=== PATIENT | female | born 1955 | race Caucasian/White ===

== ENCOUNTER → 2016-10-03 | Outpatient (CLI) | payer BC ==
--- NOTE | 2016-10-08 08:13 | MM ---
Reason for exam: screening (asymptomatic). Last mammogram was performed 1 year and 1 month ago. History: Patient is postmenopausal. Family history of premenopausal breast cancer in sister at age 48. Took hormonal contraceptives for 3 years beginning at age 18. Physical Findings: A clinical breast exam by your physician is recommended on an annual basis and results should be correlated with mammographic findings. MG Screening Mammo w CAD Bilateral CC and MLO view(s) were taken. Prior study comparison: August 31, 2015, bilateral MG screening mammo w CAD. August 18, 2014, bilateral MG screening mammo w CAD. August 02, 2013, bilateral digital screening mammo w/CAD. The breast tissue is heterogeneously dense. This may lower the sensitivity of mammography. No significant changes when compared with prior studies. ASSESSMENT: Negative, BI-RAD 1 RECOMMENDATION: Routine screening mammogram of both breasts in 1 year.
== END | disposition home or self-care (01) ==
LOC: RADMAMWWP 09:14
PROVIDERS: ATTEND Obstetrics & Gynecology
DX: Z12.31 Encounter for screening mammogram for malignant neoplasm of breast (principal)

== ENCOUNTER → 2017-06-21 | Outpatient (CLI) | payer BC ==
--- NOTE | 2017-06-21 08:02 | MR ---
EXAMINATION TYPE: MR brain wo/w con DATE OF EXAM: 06/21/2017 7:52 AM COMPARISON: Previous study dated 02/27/2016 HISTORY: Follow up from previous, Gadavist 10, Previous on PACS TECHNIQUE: Multiplanar, multiecho imaging of the brain was obtained with and without intravenous adm inistration of 10 mL intravenous Gadavist. FINDINGS: The patient's suspected meningioma which previously measured 3.1 x 3.3 x 1.8 cm today measu res 3.7 x 3.8 x 1.7 cm. This is situated directly above the cribriform plate. This does not impinge u maki the optic as an. The pituitary stalk is slightly deviated towards the left but this is unchanged from previous. There is a normal craniocervical junction. Echoplanar diffusion imaging is unremarkable. The orbits are unremarkable. There are normal vascular flow voids. There is no evidence of a CP angle mass lesion. There are a few, stable FLAIR lesions in the subcortical white matter. There is no evidence of intrac ranial blood or midline shift. IMPRESSION: 1. SLIGHT PROGRESSION IN THE PATIENT'S SUPPOSEDLY MENINGIOMA. 2. STABLE FLAIR LESIONS IN THE SUBCORTICAL WHITE MATTER. 3. NO ACUTE INTRACRANIAL ABNORMALITY.
== END | disposition home or self-care (01) ==
LOC: RADMRIMAIN 07:02
PROVIDERS: ATTEND Internal Medicine
DX: D32.0 Benign neoplasm of cerebral meninges (principal); G93.9 Disorder of brain, unspecified
CPT/HCPCS: 70553; A9581

== ENCOUNTER → 2017-10-27 | Outpatient (CLI) | payer BC ==
--- NOTE | 2017-10-27 11:48 | XR ---
EXAMINATION TYPE: XR knee complete LT DATE OF EXAM: 10/27/2017 CLINICAL HISTORY: Fall injury yesterday with pain. TECHNIQUE: Three views of the left knee are obtained. COMPARISON: None. FINDINGS: There is no acute fracture/dislocation evident in left knee. There is mild tricompartment joint space loss. No significant spurring is seen . Mild scattered subcutaneous edema is present. IMPRESSION: There is no acute fracture or dislocation in the left knee.
== END | disposition home or self-care (01) ==
LOC: RADXRMAIN 11:23
PROVIDERS: ATTEND Internal Medicine
DX: S80.02XA Contusion of left knee, initial encounter (principal); M25.462 Effusion, left knee

== ENCOUNTER → 2017-11-04 | Outpatient (CLI) | payer BC ==
--- NOTE | 2017-11-05 09:23 | MM ---
Reason for exam: screening (asymptomatic). Last mammogram was performed 1 year and 1 month ago. History: Patient is postmenopausal. Family history of premenopausal breast cancer in sister at age 48. Took hormonal contraceptives for 3 years beginning at age 18. Physical Findings: A clinical breast exam by your physician is recommended on an annual basis and results should be correlated with mammographic findings. MG 3D Screening Mammo W/Cad Bilateral CC and MLO view(s) were taken. Prior study comparison: October 03, 2016, bilateral MG screening mammo w CAD. August 31, 2015, bilateral MG screening mammo w CAD. The breast tissue is heterogeneously dense. This may lower the sensitivity of mammography. Stable benign calcifications. There is no discrete abnormality. No significant changes when compared with prior studies. ASSESSMENT: Benign, BI-RAD 2 RECOMMENDATION: Routine screening mammogram of both breasts in 1 year.
== END | disposition home or self-care (01) ==
LOC: RADMAMWWP 08:28
PROVIDERS: ATTEND Obstetrics & Gynecology
DX: Z12.31 Encounter for screening mammogram for malignant neoplasm of breast (principal)
CPT/HCPCS: 77063; 77067

== ENCOUNTER → 2019-06-28 | Outpatient (CLI) | payer BC ==
--- NOTE | 2019-06-28 11:59 | BD ---
EXAMINATION TYPE: Axial Bone Density DATE OF EXAM: 06/28/2019 COMPARISON: NONE CLINICAL HISTORY: 63-year-old female postmenopausal screening without HRT Height: 5 FT 2 IN Weight: 208 FRAX RISK QUESTIONS: Alcohol (3 or more units per day): NO Family History (Parent hip fracture): NO Glucocorticoids (More than 3mos): NO (Ex: prednisone, prednisolone, methylprednisolone, dexamethasone, and hydrocortisone). History of Fracture in Adulthood: NO Secondary Osteoporosis: 1. Type 1 Diabetes: NO 2. Hyperthyroidism: NO 3. Menopause before 45: NO 4. Malnutrition: NO 5. Chronic liver disease: NO Rheumatoid Arthritis: NO Current Tobacco Use: NO RISK FACTORS HISTORY OF: Active: NO Postmenopausal woman: PART HYST AGE 41 SYMPTOMS APPROX AGE 51 MEDICATIONS: Thyroid Medications: YES Which medication: LEVOTHYROXINE How Long: APPROX 4-5 YEARS Additional Medications: METOPROLOL, LEVOTHYROXINE Additional History: EXAM MEASUREMENTS: Bone mineral densitometry was performed using the [employer]. Bone mineral density as measured about the Lumbar spine is: ----- L1-L4(G/cm2): 1.178 T Score Values are as follows: ----- L2: -0.8 ----- L3: 0.1 ----- L4: 0.7 ----- L1-L4: 0.0 Bone mineral density has: DECREASED -0.6 % since study of: 2012 Bone mineral density about the R hip (g/cm2): 1.060 Bone mineral density about the L hip (g/cm2): 1.085 T Score values are as follows: -----R Neck: 0.2 -----L Neck: 0.3 -----R Total: 0.8 -----L Total: 1.3 Bone mineral density has: DECREASED -1.9 % since study of: 2012 IMPRESSION: Normal (Values between +1 and -1 indicate normal bone mass). Consider repeating this study in 5 year s or sooner if there is some new clinical indication. NOTE: T-SCORE=SD OF THE YOUNG ADULT MEAN.
--- NOTE | 2019-06-29 09:02 | MM ---
Reason for exam: screening (asymptomatic). Last mammogram was performed 1 year and 8 months ago. History: Patient is postmenopausal. Family history of premenopausal breast cancer in sister at age 48. Took hormonal contraceptives for 3 years beginning at age 18. Physical Findings: A clinical breast exam by your physician is recommended on an annual basis and results should be correlated with mammographic findings. MG Screening Mammo w CAD Bilateral CC and MLO view(s) were taken. Prior study comparison: November 04, 2017, bilateral MG 3d screening mammo w/cad. October 03, 2016, bilateral MG screening mammo w CAD. The breast tissue is heterogeneously dense. This may lower the sensitivity of mammography. No significant changes when compared with prior studies. ASSESSMENT: Negative, BI-RAD 1 RECOMMENDATION: Routine screening mammogram of both breasts in 1 year.
== END | disposition home or self-care (01) ==
LOC: RADMAMWWP 07:28
PROVIDERS: ATTEND Obstetrics & Gynecology
DX: Z12.31 Encounter for screening mammogram for malignant neoplasm of breast (principal); Z78.0 Asymptomatic menopausal state
CPT/HCPCS: 77067; 77080

== ENCOUNTER → 2020-01-24 | Outpatient (CLI) | payer BC ==
--- NOTE | 2020-01-24 16:30 | MR ---
EXAMINATION TYPE: MR brain wo/w con DATE OF EXAM: 01/24/2020 COMPARISON: MRI brain 06/21/2017, MRI brain 02/27/2016. HISTORY: Neoplasm TECHNIQUE: Multiplanar, multisequence images of the brain and brainstem is performed without and with IV contras t, utilizing 7.5 mL intravenous Gadavist . FINDINGS: The extra-axial low frontal interhemispheric lesion most likely representing meningioma seen directly superior to the cribriform plate measures up to 4.4 x 4.1 x 1.8 cm AP, transverse, and craniocaudal (602:11, 603:12). This is mildly increased in size versus 06/21/2017 MRI comparison when it measured 4 .1 x 3.8 x 1.8 cm (602:14, 603:8). There is redemonstrated mild leftward deviation of the pituitary s talk. There is no impingement on the optic nerves. There is similar mass effect on the bilateral fron madi lobes. Diffusion weighted images demonstrate no evidence of a recent infarct. There is no extra-axial fluid collection. Mild scattered T2 hyperintense FLAIR foci of the subcortical white matter redemonstrated . The ventricular system and cisternal spaces are normal in size and appearance. The brain volume is age appropriate. Midline structures demonstrate normal morphology. The craniocervical junction appears within normal limits. The visualized sinuses are clear and the globes are grossly symmetric. IMPRESSION: Mild interval increase in size of known extra-axial low frontal midline mass, most likely meningioma, increased from 2015 and 2017 MRI comparisons.
== END | disposition home or self-care (01) ==
LOC: RADMRIMAIN 08:08
DX: R93.0 Abnormal findings on diagnostic imaging of skull and head, not elsewhere classified (principal); D32.0 Benign neoplasm of cerebral meninges
CPT/HCPCS: 70553; A9585

== ENCOUNTER → 2020-08-11 | Outpatient (CLI) | payer BC ==
--- NOTE | 2020-08-14 10:50 | MM ---
Reason for exam: screening (asymptomatic). Last mammogram was performed 1 year and 1 month ago. History: Patient is postmenopausal. Family history of premenopausal breast cancer in sister at age 48. Took hormonal contraceptives for 3 years beginning at age 18. Physical Findings: A clinical breast exam by your physician is recommended on an annual basis and results should be correlated with mammographic findings. MG Screening Mammo w CAD Bilateral CC and MLO view(s) were taken. Prior study comparison: June 28, 2019, bilateral MG screening mammo w CAD. November 04, 2017, bilateral MG 3d screening mammo w/cad. The breast tissue is heterogeneously dense. This may lower the sensitivity of mammography. Focal asymmetry left upper outer breast zone B. ASSESSMENT: Incomplete: need additional imaging evaluation, BI-RAD 0 RECOMMENDATION: Special view mammogram of the left breast. If lesion persists on supplemental views, image directed ultrasound is recommended. [facility] will attempt to contact patient to return for supplemental views and ultrasound if indicated.
== END | disposition home or self-care (01) ==
LOC: RADMAMWWP 10:17
PROVIDERS: ATTEND Obstetrics & Gynecology
DX: Z12.31 Encounter for screening mammogram for malignant neoplasm of breast (principal)
CPT/HCPCS: 77067

== ENCOUNTER → 2020-08-23 | Outpatient (CLI) | payer BC ==
--- NOTE | 2020-08-23 11:18 | MM ---
Reason for exam: additional evaluation requested from abnormal screening. Last mammogram was performed less than 1 month ago. History: Patient is postmenopausal. Family history of premenopausal breast cancer in sister at age 48. Took hormonal contraceptives for 3 years beginning at age 18. Physical Findings: Nurse did not find any significant physical abnormalities on exam. MG Work Up Mamm w CAD LT Spot compression CC, spot compression MLO, and LM view(s) were taken of the left breast. Prior study comparison: August 11, 2020, bilateral MG screening mammo w CAD. June 28, 2019, bilateral MG screening mammo w CAD. The breast tissue is heterogeneously dense. This may lower the sensitivity of mammography. There is no discrete abnormality including area of concern on compression and ML. No significant new findings when compared with previous films. These results were verbally communicated with the patient and result sheet given to the patient on 08/23/20. ASSESSMENT: Benign, BI-RAD 2 RECOMMENDATION: Return to routine screening mammogram schedule for both breasts.
== END | disposition home or self-care (01) ==
LOC: RADMAMWWP 10:20
PROVIDERS: ATTEND Obstetrics & Gynecology
DX: R92.8 Other abnormal and inconclusive findings on diagnostic imaging of breast (principal)
CPT/HCPCS: 77065

== ENCOUNTER 2021-05-25 07:07 | Day surgery (SDC) | payer BC ==
[2021-05-23 13:39] VITALS: BMI 31.4
[~2021-05-25 07:07] MED LIST: LACTATED RINGERS 1,000 ML IV SCH; LIDOCAINE 1% (10MG/ML) FOR IV START INTRADERMA PRN
[2021-05-25 07:30] VITALS: TEMP 98.1
[2021-05-25] MEDS ORDERED: PROPOFOL 10 MG/ML 20 ML VIAL IV ONE (08:06)
[2021-05-25] MEDS ORDERED: LIDOCAINE 1% INJ 10MG/ML (20 ML MDV) ONE (08:06)
--- NOTE | 2021-05-25 08:33 | P.PCN ---
Date of Procedure: 05/25/21 Procedure(s) Performed: BRIEF HISTORY: Patient is a 65-year-old pleasant white female scheduled for an elective colonoscopy as a part of a for colon cancer and family history of colon cancer diagnosed in her sister at age 69. PROCEDURE PERFORMED: Colonoscopy with snare polypectomy and Endo Clip placement. PREOPERATIVE DIAGNOSIS: He for colon cancer and family history of colon cancer. IV sedation per Anesthesia. PROCEDURE: After informed consent was obtained, the patient, was brought into the endoscopy unit. IV sedation was administered by Anesthesia under continuous monitoring. Digital rectal examination was normal. Initially the Olympus CF-160 flexible video colonoscope was then inserted in the rectum, gradually advanced into the cecum without any difficulty. Careful examination was performed as the scope was gradually being withdrawn. Ileocecal valve and the appendiceal orifice were visualized and appeared normal. Prep was excellent. Mucosa of the cecum, ascending colon, transverse colon, appeared normal. In the descending colon there was a 1 cm polyp that was removed by snare polypectomy. In the distal sigmoid colon at 25 cm from the anal was there was a 2.57 to broad-based polyp that was removed by piecemeal snare polypectomy followed by Endo Clip placement. Rest of the descending colon, sigmoid colon, and rectum appeared normal. Retroflexion was performed in the rectum and no lesions were seen. The patient tolerated the procedure well. IMPRESSION: 1 cm descending colon polyp status post polypectomy 2.5 cm broad-based broad-based sigmoid colon polyp status post polypectomy followed by Endo Clip placement RECOMMENDATIONS: Findings of this examination were discussed with the patient is a family.. She was advised to follow with the biopsy wasthe biopsy reveals adenoma she can have a repeat colonoscopy in 3 years
[2021-05-25 08:51] VITALS: BP 106/69; PULSE 80; RESP 18
== END 2021-05-25 09:16 | disposition home or self-care (01) ==
LOC: ORWHC2ENDO 07:07
PROVIDERS: ATTEND Internal Medicine Gastroenterology
DX: Z12.11 Encounter for screening for malignant neoplasm of colon (principal); D12.5 Benign neoplasm of sigmoid colon; D12.4 Benign neoplasm of descending colon; Z80.0 Family history of malignant neoplasm of digestive organs; I34.1 Nonrheumatic mitral (valve) prolapse; E07.9 Disorder of thyroid, unspecified; K21.9 Gastro-esophageal reflux disease without esophagitis; Z91.040 Latex allergy status; Z79.890 Hormone replacement therapy; Z79.899 Other long term (current) drug therapy; Z91.09 Other allergy status, other than to drugs and biological substances
CPT/HCPCS: 88305; 45385; J2001; J2704; 45382

== ENCOUNTER → 2021-05-31 | Outpatient (CLI) | payer BC ==
--- NOTE | 2021-05-31 21:20 | CT ---
EXAMINATION TYPE: CT abdomen pelvis w con CT DLP: 1332.6 mGycm, Automated exposure control for dose reduction was used. DATE OF EXAM: 05/31/2021 4:41 PM COMPARISON: None CLINICAL INDICATION:Female, 65 years old with history of C18.7 Sigmoid ca; malignant neoplasm of sigmoid colon TECHNIQUE: Standard CT of the abdomen and pelvis following the administration of 100 cc of Isovue 3 00 IV contrast material and oral contrast. Coronal and sagittal reformats were performed. FINDINGS: LOWER CHEST: Unremarkable ABDOMEN LIVER: No evidence of mass. GALLBLADDER AND BILE DUCTS: Unremarkable. PANCREAS: Unremarkable. SPLEEN: Unremarkable. ADRENAL GLANDS: Unremarkable. KIDNEYS AND URETERS: No evidence of hydronephrosis or renal calculus. The ureters are unremarkable. PELVIS BLADDER: Unremarkable REPRODUCTIVE: Unremarkable. ABDOMEN & PELVIS STOMACH AND BOWEL: Evidence for colonic wall thickening or mass. Few scattered colonic diverticula wi thin the descending colon. Oral contrast does not opacify the distal descending colon and sigmoid col on to the rectum. A surgical marker clip is seen in the in the sigmoid colon lumen in the anterior as pect of the abdomen. There is some streak artifact around this marker with nodular thickening suggest ed measuring up to 5 mm. No evidence of extension beyond the lumen. No evidence of bowel obstruction. PERITONEUM: No evidence of pneumoperitoneum or free fluid. VASCULATURE: No evidence of aortic aneurysm. MUSCULOSKELETAL: No acute osseous abnormalities LYMPH NODES: No gross evidence for lymphadenopathy. SOFT TISSUE/ABDOMINAL WALL: Unremarkable IMPRESSION: 1. Sigmoid colon surgical clip with suggestion of a nodular wall near its attachment measuring 5 mm. No evidence of extension outside the colon lumen. No evidence of suspicious lymph nodes. No findings to suggest metastatic disease. 2. Colonic Diverticulosis.
== END | disposition home or self-care (01) ==
LOC: RADCTMAIN 14:35
PROVIDERS: ATTEND Internal Medicine Gastroenterology
DX: C18.7 Malignant neoplasm of sigmoid colon (principal); K57.30 Diverticulosis of large intestine without perforation or abscess without bleeding
CPT/HCPCS: 74177; Q9967

== ENCOUNTER → 2021-07-04 | Outpatient (CLI) | payer BC ==
--- NOTE | 2021-07-05 07:17 | ECHOF ---
Referral Reason:I34.1 MEASUREMENTS -------- HEIGHT: 157.5 cm WEIGHT: 80.7 kg BP: RVIDd: 2.8 cm (< 3.3) IVSd: 1.1 cm (0.6 - 1.1) LVIDd: 4.7 cm (3.9 - 5.3) LVPWd: 1.2 cm (0.6 - 1.1) IVSs: 1.6 cm LVIDs: 2.7 cm LVPWs: 1.4 cm LAESV Index (A-L): 26.75 ml/m Ao Diam: 2.9 cm (2.0 - 3.7) AV Cusp: 2.0 cm (1.5 - 2.6) LA Diam: 4.4 cm (2.7 - 3.8) MV EXCURSION: 15.640 mm (> 18.000) MV EF SLOPE: 88 mm/s (70 - 150) EPSS: 0.2 cm MV E Kosta: 0.91 m/s MV DecT: 168 ms MV A Kosta: 1.01 m/s MV E/A Ratio: 0.89 RAP: 5.00 mmHg RVSP: 32.08 mmHg FINDINGS -------- Sinus rhythm. This was a technically adequate study. The left ventricular size is normal. There is borderline concentric left ventricular hypertrophy. Overall left ventricular systolic function is normal with, an EF between 55 - 60 %. The right ventricle is normal in size. Normal LA size by volume 22+/-6 ml/m2. The right atrial size is normal. Interatrial and interventricular septum intact. The aortic valve is trileaflet, and appears structurally normal. No aortic stenosis or regurgitation. The mitral valve leaflets are mildly thickened. Mild mitral regurgitation is present. The tricuspid valve appears structurally normal. Mild tricuspid regurgitation present. Right vent ricular systolic pressure is normal at < 35 mmHg. The right ventricular systolic pressure, as measu red by Doppler, is 32.08mmHg. There is no pulmonic regurgitation present. The aortic root size is normal. IVC Not well visulized. There is no pericardial effusion. CONCLUSIONS -------- 1. There is borderline concentric left ventricular hypertrophy. 2. Overall left ventricular systolic function is normal with, an EF between 55 - 60 %. 3. The aortic valve is trileaflet, and appears structurally normal. No aortic stenosis or regurgitati on. 4. Mild mitral regurgitation is present. 5. Mild tricuspid regurgitation present. SENIOR PROJECT ARCHITECT: Pita Hurst RDCS
== END | disposition home or self-care (01) ==
LOC: RADECHMAIN 13:50
PROVIDERS: ATTEND Internal Medicine
DX: I34.1 Nonrheumatic mitral (valve) prolapse (principal); I34.0 Nonrheumatic mitral (valve) insufficiency; I07.1 Rheumatic tricuspid insufficiency
CPT/HCPCS: 93306

== ENCOUNTER → 2021-09-25 | Outpatient (CLI) | payer BC ==
[2021-09-25 14:53] LABS: Protein, Total 6.9 g/dL (6.2-8.2)
== END | disposition home or self-care (01) ==
LOC: LABWHC1 07:27
PROVIDERS: ATTEND Internal Medicine
DX: E83.52 Hypercalcemia (principal)
CPT/HCPCS: 36415; 83970; 84165

== ENCOUNTER → 2021-10-05 | Outpatient (CLI) | payer BC ==
--- NOTE | 2021-10-05 07:55 | US ---
EXAMINATION TYPE: US thyroid st tissue head/neck DATE OF EXAM: 10/05/2021 COMPARISON: CT June 06, 2021 CLINICAL HISTORY: E04.1 THYROID NODULE. Nodule. Patient has been on levothyroxine x 5 years. GLAND SIZE: Right Lobe: 4.4 x 1.5 x 1.6 cm Overall Parenchyma: heterogenous Left Lobe: 4.4 x 1.8 x 1.7 cm Overall Parenchyma: heterogeneous Isthmus Thickness: 0.35 cm NODULES RIGHT: # of nodules measured on right: 1 1. 1.3 X 1.1 x 1.0 cm, lower mid, solid or almost completely solid, isoechoic nodule, which is wide r than tall, with smooth margins, without echogenic foci. Prior size: No prior *Nodule appears to have hypoechoic border. LEFT: # of nodules measured on left: 1 1. 2.3 X 2.0 x 1.1 cm, upper-mid mid, solid or almost completely solid solid nodule, isoechoic nodu le, which is wider than tall, with ill-defined margins, with echogenic foci. Prior size: CT showed left 1.9 cm nodule, unable to definitely correlate with certainty. ISTHMUS: # of nodules measured in the isthmus: 0 Bilateral neck scanned, no evidence of lymphadenopathy. Heterogeneous normal-sized thyroid with isoechoic 1.3 cm posterior right thyroid nodule and isoechoic ill-defined oval 2.3 cm likely corresponding to the nodule identified on CT. Both TR 3 lesions. IMPRESSION: As above. Sonographic follow-up at one, 3, and 5 years advised. 2017 ACR TI-RADS LEVEL: TR-RADS 3 - Mildly Suspicious: Follow if > 1.5 cm, FNA if > 2.5 cm *Highest TI-RADS level nodule reported
[2021-10-05 11:10] LABS: Protein, Total 6.2 g/dL (6.2-8.2)
== END | disposition home or self-care (01) ==
LOC: RADUSWWP 06:56
PROVIDERS: ATTEND Internal Medicine
DX: E04.1 Nontoxic single thyroid nodule (principal); E83.52 Hypercalcemia
CPT/HCPCS: 76536; 84155; 84165; 86334

== ENCOUNTER → 2021-12-21 | Outpatient (CLI) | payer BC ==
--- NOTE | 2021-12-24 18:55 | MM ---
Reason for Exam: Screening (asymptomatic). Last mammogram was performed 1 year(s) and 4 month(s) ago. Patient History: Menarche at age 13. First Full-Term at age 31. Late child-bearing (after 31). Hysterectomy at age 41. Postmenopausal. Hormonal Contraceptives for 3 years from age 18 until age 21. Sister had breast cancer, age 48. Risk Values: Leni 5 year model risk: 3.3%. NCI Lifetime model risk: 12.3%. Prior Study Comparison: 06/28/2019 Bilateral Screening Mammogram, [facility]. 08/11/2020 Bilateral Screening Mammogram, [facility]. 08/23/2020 Left Diagnostic Mammogram, [facility]. Tissue Density: The breast tissue is heterogeneously dense. This may lower the sensitivity of mammography. Findings: Analyzed By CAD. 3 areas of possible distortion left MLO view at middle depth versus superimposition shadow as no clear correlate is seen on the cc view. However, the areas incompletely disperse on 3-D images. Further evaluation is recommended. Overall Assessment: Incomplete: need additional imaging evaluation, BI-RAD 0 Management: Special View Mammogram of the left breast. To include spot 3-D MLO and 3-D lateral views. Also, whole left breast ultrasound for additional parenchymal assessment on the background of dense tissue. Electronically signed and approved by: James Tinoco M.D. Radiologist
== END | disposition home or self-care (01) ==
LOC: RADMAMWWP 08:08
PROVIDERS: ATTEND Obstetrics & Gynecology
DX: Z12.31 Encounter for screening mammogram for malignant neoplasm of breast (principal)
CPT/HCPCS: 77063; 77067

== ENCOUNTER → 2022-08-15 | Outpatient (CLI) | payer BC ==
--- NOTE | 2022-08-15 14:50 | MR ---
EXAMINATION TYPE: MR brain wo/w con DATE OF EXAM: 08/15/2022 COMPARISON: 05/28/2021 HISTORY: Follow up meningioma. TECHNIQUE: Multiplanar, multisequence images of the brain and brainstem is performed without and with IV contras t, utilizing 8 mL intravenous Gadavist . FINDINGS: Diffusion weighted images demonstrate no evidence of a recent infarct or other diffusion ab normality. There a few areas of abnormal signal measuring less than a centimeter within the white ma tter which are nonspecific but most typical of remote white matter. The ventricular system and ciste rnal spaces are normal in size and appearance. The brain volume is age appropriate. Midline structures demonstrate normal morphology. The craniocervical junction appears within normal limits. Post contrast images demonstrate There is persistent lower frontal lobe broad-based mass in the midli ne extending to the right and left of heterogeneous slightly diminished T1 and increased T2 hyperinte nsity measuring 4.1 cm transversely by 4.6 cm AP diameter by 2.1 cm craniocaudal diameter with fairly homogeneous postcontrast enhancement consistent with known large meningioma. Mild vasogenic edema bi laterally greater on the right aspect superior to this is redemonstrated similar to prior. Stable sli ght leftward deviation of pituitary stalk. The visualized sinuses demonstrate mild changes of chronic sinusitis and the globes are intact. Faint is a mild chronic mastoiditis. IMPRESSION: 1. Stable large 4.6 cm midline inferior frontal extra-axial mass compatible with meningioma unchanged from previous exam. There does appear to be vasogenic edema likely secondary to mass effect within t he bilateral frontal lobes greater on the right intimal mass effect upon the anterior horns of the la teral and
== END | disposition home or self-care (01) ==
LOC: RADMRIMAIN 10:20
DX: D32.0 Benign neoplasm of cerebral meninges (principal)
CPT/HCPCS: 70553; A9585

== ENCOUNTER → 2022-09-02 | Outpatient (CLI) | payer BC | END | disposition home or self-care (01) | LOC: LABWHC1 11:27 | PROVIDERS: ATTEND Otolaryngology | DX: J30.89 Other allergic rhinitis (principal) | CPT/HCPCS: 36415 ==